=== PATIENT | male | born 1940 | race Caucasian/White ===

== ENCOUNTER 2019-08-10 16:02 | Inpatient (IN) ==
[2019-08-10 20:47] LABS: Basophils % 0.3 %; Hemoglobin 10.9 g/dL (12.9-16.9); INR 1.4; Immature Granulocytes % 0.3 % (0-4); Lymphocytes # 0.1 K/mcL (0.6-4.6); Lymphocytes % 4.2 %; Mean Corpuscular HGB Conc 35.2 g/dL (31.6-35.5); Mean Corpuscular Hemoglobin 32.3 pg (28.0-33.3); Monocytes # 0.2 K/mcL (0.0-1.3); Monocytes % 5.1 %; Platelet Count 114 K/mcL (140-400); Prothrombin Time 15.5 Seconds (9.4-12.1); Red Blood Count 3.37 M/mcL (4.19-5.50); Red Cell Distribution Width 15.7 % (11.5-14.5); Segmented Neutrophils % 90.1 %; White Blood Count 3.4 K/mcL (4.3-11.1)
[2019-08-10 20:54] LABS: Neutrophils # 3.1 K/mcL (1.6-8.9)
[2019-08-10 21:02] LABS: Albumin 2.7 g/dL (3.5-5.7); Albumin/Globulin Ratio 1.4 (1.1-2.2); Calcium 6.5 mg/dL (8.6-10.3); Globulin 1.9 g/dL (2.4-3.5); Magnesium 1.2 mg/dL (1.6-2.6); Phosphorous 3.8 mg/dL (2.7-4.5); Potassium 4.4 mEq/L (3.5-5.1); Total Protein 4.6 g/dL (6.4-8.9)
[2019-08-10 21:13] LABS: Toxic Granulation Present (Not Present)
[2019-08-10 21:14] LABS: Reactive Lymphocytes Present (Not Present)
[2019-08-10] MEDS ORDERED: Naloxone 0.4 MG/ML INJ IVP PRN (21:28)
[2019-08-10] MEDS ORDERED: levoFLOXacin 750 MG/150 ML 750 MG/150 ML BAG IVPB ONE (21:37)
[2019-08-10] MEDS ORDERED: Melatonin 3 MG TABLET PO PRN (22:38)
[2019-08-10] MEDS: Calcium Gluconate 1gm/50mL 1 GM/50 ML BAG IVPB SCH (22:48)
[2019-08-10] MEDS: Norepinephrine 4 MG in 0.9 % Sodium Chloride 250 ML IVC SCH (22:48)
[2019-08-10 23:42] LABS: Adenovirus Not Detected (Not Detect); Bordetella Pertussis Not Detected (Not Detect); Chlamydophila pneumoniae Not Detected (Not Detect); Coronavirus 229E Not Detected (Not Detect); Coronavirus HKU1 Not Detected (Not Detect); Coronavirus NL63 Not Detected (Not Detect); Coronavirus OC43 Not Detected (Not Detect); Human Metapneumovirus Not Detected (Not Detect); Human Rhinovirus/Enterovirus Not Detected (Not Detect); Influenza A Subtype 2009 H1 Not Detected (Not Detect); Influenza A Untypeable Not Detected (Not Detect); Influenza B Not Detected (Not Detect); Mycoplasma pneumoniae Not Detected (Not Detect); Parainfluenza Virus 1 Not Detected (Not Detect); Parainfluenza Virus 2 Not Detected (Not Detect); Parainfluenza Virus 3 Not Detected (Not Detect); Parainfluenza Virus 4 Not Detected (Not Detect); Respiratory Syncytial Virus Not Detected (Not Detect)
[2019-08-10 23:44] LABS: Bilirubin,Urine Small (Negative); Blood,Urine Large (Negative); Clarity,Urine Cloudy (Clear); Color,Urine Dark Yellow (Yellow); Glucose,Urine (UA) Normal (Normal); Ketones,Urine Negative (Negative); Leukocyte Esterase,Urine Trace (Negative); Nitrite,Urine Negative (Negative); Protein,Urine 100 mg/dL (Neg-Trace); Specific Gravity,Urine 1.023 (1.010-1.025); Urobilinogen,Urine Normal (Normal)
[2019-08-11] MEDS: Calcium Gluconate 1gm/50mL 1 GM/50 ML BAG IVPB SCH ×3 (00:02→07:20)
[2019-08-11 00:04] LABS: Hyaline Casts,Urine Few per lpf (None-Few); RBC,Urine 50-100 per hpf (0-3)
[2019-08-11 00:17] LABS: Bacteria,Urine Few per hpf (None-Few)
[2019-08-11 00:18] LABS: Amorphous Sediment,Urine Few (Few); Squamous Epithelial Cell,Urine Moderate per lpf (None-Few)
[2019-08-11] MEDS: Piperacillin/Tazobactam 3.375 GM in 0.9 % Sodium Chloride Mini Bag 100 ML IVPB SCH ×4 (01:16→23:42)
[2019-08-11] MEDS: Norepinephrine 4 MG in 0.9 % Sodium Chloride 250 ML IVC SCH (03:45)
[2019-08-11 04:03] LABS: Basophils % 0.4 %; Immature Granulocytes % 0.5 % (0-4); Monocytes % 3.1 %
[2019-08-11 04:05] LABS: Hematocrit 29.2 % (37.5-50.1); Hemoglobin 10.2 g/dL (12.9-16.9); Immature Platelets 0.6 % (1.1-6.1); Lymphocytes # 0.1 K/mcL (0.6-4.6); Lymphocytes % 2.4 %; Mean Corpuscular HGB Conc 34.9 g/dL (31.6-35.5); Mean Corpuscular Hemoglobin 31.8 pg (28.0-33.3); Mean Platelet Volume 8.5 fL (9.4-12.4); Monocytes # 0.2 K/mcL (0.0-1.3); Neutrophils # 5.2 K/mcL (1.6-8.9); Platelet Count 107 K/mcL (140-400); Red Blood Count 3.21 M/mcL (4.19-5.50); Red Cell Distribution Width 15.7 % (11.5-14.5); Segmented Neutrophils % 93.6 %; White Blood Count 5.5 K/mcL (4.3-11.1)
[2019-08-11 04:10] LABS: INR 1.5; Prothrombin Time 17.3 Seconds (9.4-12.1)
[2019-08-11 04:28] LABS: Albumin 2.5 g/dL (3.5-5.7); Albumin/Globulin Ratio 1.4 (1.1-2.2); Bilirubin,Direct 1.1 mg/dL (0.0-0.2); Bilirubin,Total 2.1 mg/dL (0.3-1.0); Calcium 6.7 mg/dL (8.6-10.3); Globulin 1.8 g/dL (2.4-3.5); Potassium 4.3 mEq/L (3.5-5.1); Total Protein 4.3 g/dL (6.4-8.9)
[2019-08-11 04:52] LABS: Anisocytosis 1+ (Not Present); Platelet Estimate Decreased (Normal)
[2019-08-11] MEDS: *HR* Heparin 5,000 UNIT/ML VIAL SQ SCH ×2 (05:31→19:49)
[2019-08-11] MEDS: Aspirin Enteric Coated 81 MG Tablet PO SCH (09:09)
[2019-08-11] MEDS: rOPINIRole 0.25 MG TABLET PO SCH ×3 (09:09→19:49)
[2019-08-11] MEDS ORDERED: *HR* Metoprolol 5 MG/5 ML VIAL IVP PRN (13:25)
[2019-08-11] MEDS ORDERED: *HR* Metoprolol 5 MG/5 ML VIAL IVP ONE ×3 (13:25→14:00)
[2019-08-11] MEDS ORDERED: Phenylephrine 10 MG in 0.9 % Sodium Chloride 250 ML IVC SCH (14:30)
[2019-08-11] MEDS ORDERED: Amiodarone Premix 360 MG/200 ML BAG IVC ONE (15:25)
[2019-08-11] MEDS ORDERED: Amiodarone Premix 150 MG/100 ML BAG IVPB ONE (15:25)
[2019-08-11] MEDS ORDERED: *HR* Heparin 5,000 UNIT/ML VIAL IVP ONE (15:26)
[2019-08-11] MEDS ORDERED: *HR* Heparin 5,000 UNIT/ML VIAL IVP PRN ×2 (15:26)
[2019-08-11] MEDS ORDERED: Heparin 25,000 UNIT/250 ML D5W 25,000 UNIT/250 ML IV.SOLN IVC SCH (15:30)
[2019-08-11] MEDS ORDERED: Amiodarone Premix 360 MG/200 ML BAG IVC SCH (15:30)
[2019-08-11 16:53] LABS: Red Cell Distribution Width 15.6 % (11.5-14.5)
[2019-08-11 16:54] LABS: INR 1.4; Prothrombin Time 16.3 Seconds (9.4-12.1)
[2019-08-11 16:55] LABS: Hematocrit 30.9 % (37.5-50.1); Immature Platelets 2.1 % (1.1-6.1); Mean Corpuscular HGB Conc 35.6 g/dL (31.6-35.5); Mean Corpuscular Hemoglobin 32.2 pg (28.0-33.3); Mean Corpuscular Volume 90.4 fL (83.0-100.0); Mean Platelet Volume 8.9 fL (9.4-12.4); Red Blood Count 3.42 M/mcL (4.19-5.50); White Blood Count 8.4 K/mcL (4.3-11.1)
[2019-08-11] MEDS ORDERED: *HR* Digoxin 0.5 MG/2 ML AMPUL IVP ONE (17:07)
[2019-08-11] MEDS: Phenylephrine 50 MG in 0.9 % Sodium Chloride 250 ML IVC SCH (17:33)
[2019-08-11] MEDS ORDERED: Perflutren Lipid Microsphere 1.3 ML in 0.9 % Sodium Chloride 8.7 ML IVP ONE (19:06)
[2019-08-11] MEDS: carvediloL 6.25 MG TABLET PO SCH (19:49)
[2019-08-12 03:49] LABS: Basophils % 0.3 %; Lymphocytes % 2.3 %
[2019-08-12 03:51] LABS: Eosinophils % 0.1 %; Hematocrit 25.8 % (37.5-50.1); Immature Granulocytes % 16.5 % (0-4); Immature Platelets 1.3 % (1.1-6.1); Lymphocytes # 0.2 K/mcL (0.6-4.6); Mean Corpuscular HGB Conc 34.9 g/dL (31.6-35.5); Mean Corpuscular Hemoglobin 31.8 pg (28.0-33.3); Mean Corpuscular Volume 91.2 fL (83.0-100.0); Mean Platelet Volume 8.9 fL (9.4-12.4); Monocytes # 0.2 K/mcL (0.0-1.3); Monocytes % 2.6 %; Neutrophils # 5.5 K/mcL (1.6-8.9); Red Blood Count 2.83 M/mcL (4.19-5.50); Red Cell Distribution Width 15.6 % (11.5-14.5); Segmented Neutrophils % 78.2 %
[2019-08-12 03:56] LABS: Albumin 2.2 g/dL (3.5-5.7); Albumin/Globulin Ratio 1.2 (1.1-2.2); Bilirubin,Total 1.5 mg/dL (0.3-1.0); Calcium 7.1 mg/dL (8.6-10.3); Globulin 1.9 g/dL (2.4-3.5); Potassium 3.8 mEq/L (3.5-5.1); Total Protein 4.1 g/dL (6.4-8.9)
[2019-08-12 04:06] LABS: Platelet Count 77 K/mcL (140-400)
[2019-08-12 05:02] LABS: Basophils % 0.3 %; Red Cell Distribution Width 15.5 % (11.5-14.5)
[2019-08-12 05:04] LABS: Hematocrit 25.6 % (37.5-50.1); Hemoglobin 8.9 g/dL (12.9-16.9); Immature Granulocytes % 10.7 % (0-4); Immature Platelets 1.5 % (1.1-6.1); Lymphocytes # 0.2 K/mcL (0.6-4.6); Lymphocytes % 2.5 %; Mean Corpuscular HGB Conc 34.8 g/dL (31.6-35.5); Mean Corpuscular Hemoglobin 31.6 pg (28.0-33.3); Mean Corpuscular Volume 90.8 fL (83.0-100.0); Mean Platelet Volume 8.6 fL (9.4-12.4); Monocytes # 0.2 K/mcL (0.0-1.3); Monocytes % 2.7 %; Neutrophils # 5.6 K/mcL (1.6-8.9); Red Blood Count 2.82 M/mcL (4.19-5.50); Segmented Neutrophils % 83.8 %; White Blood Count 6.7 K/mcL (4.3-11.1)
[2019-08-12] MEDS: Phenylephrine 50 MG in 0.9 % Sodium Chloride 250 ML IVC SCH ×2 (05:05→19:00)
[2019-08-12] MEDS: *HR* Heparin 5,000 UNIT/ML VIAL SQ SCH ×3 (05:06→20:51)
[2019-08-12] MEDS: Calcium Gluconate 1gm/50mL 1 GM/50 ML BAG IVPB SCH ×2 (05:06→06:25)
[2019-08-12 05:11] LABS: Platelet Count 74 K/mcL (140-400)
[2019-08-12] MEDS ORDERED: Aminoglycoside Consult 1 EACH MC ONE (07:30)
[2019-08-12] MEDS: Piperacillin/Tazobactam 3.375 GM in 0.9 % Sodium Chloride Mini Bag 100 ML IVPB SCH (08:17)
[2019-08-12] MEDS: rOPINIRole 0.25 MG TABLET PO SCH ×3 (08:17→20:51)
[2019-08-12] MEDS: carvediloL 6.25 MG TABLET PO SCH ×2 (08:17→20:51)
[2019-08-12] MEDS: Aspirin Enteric Coated 81 MG Tablet PO SCH (08:17)
[2019-08-12] MEDS ORDERED: *HR* Digoxin 0.125 MG TABLET PO SCH (09:00)
[2019-08-12] MEDS: Cefepime HCl 2,000 MG in Water for inj. (sterile) 20 ML IVP SCH (18:06)
[2019-08-13 04:36] LABS: Mean Corpuscular Hemoglobin 32.1 pg (28.0-33.3); Red Cell Distribution Width 15.5 % (11.5-14.5)
[2019-08-13 04:38] LABS: Hematocrit 25.6 % (37.5-50.1); Hemoglobin 8.7 g/dL (12.9-16.9); Immature Granulocytes % 1.7 % (0-4); Immature Platelets 1.6 % (1.1-6.1); Lymphocytes # 0.2 K/mcL (0.6-4.6); Lymphocytes % 4.6 %; Mean Corpuscular Volume 94.5 fL (83.0-100.0); Mean Platelet Volume 9.8 fL (9.4-12.4); Monocytes # 0.2 K/mcL (0.0-1.3); Neutrophils # 4.1 K/mcL (1.6-8.9); Red Blood Count 2.71 M/mcL (4.19-5.50); Segmented Neutrophils % 88.7 %; White Blood Count 4.6 K/mcL (4.3-11.1)
[2019-08-13 04:42] LABS: Platelet Count 60 K/mcL (140-400)
[2019-08-13 04:59] LABS: BUN/Creatinine Ratio 30 (6-26); Blood Urea Nitrogen 39 mg/dL (8-23); Calcium 7.2 mg/dL (8.6-10.3); Carbon Dioxide 23 mEq/L (23-29); Chloride 108 mEq/L (98-107); Glucose 92 mg/dL (70-105); Osmolality,Calculated 291 (280-300); Potassium 3.8 mEq/L (3.5-5.1); Sodium 136 mEq/L (136-145); eGFR For African Americans > 60 (> 60); eGFR For Non-African Americans 54 (> 60)
[2019-08-13 05:28] LABS: Toxic Granulation Present (Not Present)
[2019-08-13 05:29] LABS: Platelet Estimate Decreased (Normal); Poikilocytosis 1+ (Not Present)
[2019-08-13] MEDS: Norepinephrine 4 MG in 0.9 % Sodium Chloride 250 ML IVC SCH (05:42)
[2019-08-13] MEDS: Cefepime HCl 2,000 MG in Water for inj. (sterile) 20 ML IVP SCH (05:43)
[2019-08-13] MEDS: *HR* Heparin 5,000 UNIT/ML VIAL SQ SCH ×3 (05:44→21:18)
[2019-08-13] MEDS ORDERED: cefTRIAXone 2,000 MG in Water for inj. (sterile) 20 ML IVP SCH (08:00)
[2019-08-13] MEDS: Aspirin Enteric Coated 81 MG Tablet PO SCH (08:50)
[2019-08-13] MEDS: rOPINIRole 0.25 MG TABLET PO SCH ×3 (08:50→20:08)
[2019-08-13] MEDS: carvediloL 6.25 MG TABLET PO SCH ×2 (08:50→17:29)
[2019-08-13] MEDS ORDERED: Naloxone 0.4 MG/ML INJ IVP PRN (12:45)
[2019-08-13] MEDS ORDERED: Melatonin 3 MG TABLET PO PRN (12:45)
[2019-08-13] MEDS ORDERED: *HR* Metoprolol 5 MG/5 ML VIAL IVP PRN (12:45)
[2019-08-14] MEDS: *HR* Heparin 5,000 UNIT/ML VIAL SQ SCH ×2 (05:31→08:05)
[2019-08-14] MEDS ORDERED: Water for inj. (sterile) 20 ML IV ONE (08:32)
[2019-08-14 08:37] LABS: Hemoglobin 9.7 g/dL (12.9-16.9); Mean Corpuscular Volume 91.2 fL (83.0-100.0)
[2019-08-14 08:39] LABS: Hematocrit 27.9 % (37.5-50.1); Immature Granulocytes % 1.1 % (0-4); Immature Platelets 1.7 % (1.1-6.1); Lymphocytes # 0.3 K/mcL (0.6-4.6); Lymphocytes % 6.9 %; Mean Corpuscular HGB Conc 34.8 g/dL (31.6-35.5); Mean Corpuscular Hemoglobin 31.7 pg (28.0-33.3); Mean Platelet Volume 9.3 fL (9.4-12.4); Monocytes # 0.3 K/mcL (0.0-1.3); Red Blood Count 3.06 M/mcL (4.19-5.50); Red Cell Distribution Width 15.5 % (11.5-14.5); White Blood Count 3.8 K/mcL (4.3-11.1)
[2019-08-14 08:40] LABS: Neutrophils # 3.2 K/mcL (1.6-8.9); Platelet Count 66 K/mcL (140-400)
[2019-08-14] MEDS: cefTRIAXone 2,000 MG in Water for inj. (sterile) 20 ML IVP SCH (08:42)
[2019-08-14] MEDS: rOPINIRole 0.25 MG TABLET PO SCH ×3 (08:42→22:04)
[2019-08-14] MEDS: carvediloL 6.25 MG TABLET PO SCH ×2 (08:42→16:59)
[2019-08-14 08:49] LABS: INR 1.1; Prothrombin Time 12.5 Seconds (9.4-12.1)
[2019-08-14 08:56] LABS: BUN/Creatinine Ratio 26 (6-26); Blood Urea Nitrogen 32 mg/dL (8-23); Calcium 7.5 mg/dL (8.6-10.3); Carbon Dioxide 26 mEq/L (23-29); Chloride 106 mEq/L (98-107); Glucose 96 mg/dL (70-105); Osmolality,Calculated 295 (280-300); Potassium 3.8 mEq/L (3.5-5.1); Sodium 139 mEq/L (136-145); eGFR For African Americans > 60 (> 60); eGFR For Non-African Americans 58 (> 60)
[2019-08-14] MEDS: Aspirin Enteric Coated 81 MG Tablet PO SCH (08:57)
[2019-08-14] MEDS ORDERED: *HR* Digoxin 0.125 MG TABLET PO SCH (09:00)
[2019-08-14 09:01] LABS: Platelet Estimate Decreased (Normal); Toxic Granulation Present (Not Present)
[2019-08-15 02:30] LABS: BUN/Creatinine Ratio 27 (6-26); Blood Urea Nitrogen 30 mg/dL (8-23); Calcium 7.5 mg/dL (8.6-10.3); Carbon Dioxide 24 mEq/L (23-29); Chloride 109 mEq/L (98-107); Glucose 116 mg/dL (70-105); Osmolality,Calculated 291 (280-300); Potassium 3.6 mEq/L (3.5-5.1); Sodium 137 mEq/L (136-145); eGFR For African Americans > 60 (> 60); eGFR For Non-African Americans > 60 (> 60)
[2019-08-15] MEDS: carvediloL 6.25 MG TABLET PO SCH ×2 (10:19→15:37)
[2019-08-15] MEDS: rOPINIRole 0.25 MG TABLET PO SCH ×3 (10:19→20:54)
[2019-08-15] MEDS: cefTRIAXone 2,000 MG in Water for inj. (sterile) 20 ML IVP SCH (10:19)
[2019-08-15] MEDS: Aspirin Enteric Coated 81 MG Tablet PO SCH (10:19)
[2019-08-15] MEDS: *HR* Digoxin 0.125 MG TABLET PO SCH (15:38)
[2019-08-15] MEDS: Cefdinir 300 MG CAPSULE PO SCH (20:53)
[2019-08-16] MEDS ORDERED: Metoprolol XL (24 HR) Succ 50 MG TAB.ER.24H PO SCH (09:00)
[2019-08-16] MEDS: *HR* Digoxin 0.125 MG TABLET PO SCH (10:16)
[2019-08-16] MEDS: rOPINIRole 0.25 MG TABLET PO SCH ×2 (10:16→17:23)
[2019-08-16] MEDS: Cefdinir 300 MG CAPSULE PO SCH (10:16)
[2019-08-16] MEDS: Aspirin Enteric Coated 81 MG Tablet PO SCH (10:16)
[2019-08-16 16:26] VITALS: BP 128/78
== END 2019-08-16 18:04 | disposition home health service (06) | DRG 871 ==
LOC: ICNU 19:01 → SUATTDRO 19:01 → 2NENU 08-13 22:04
PROVIDERS: ADMIT Pediatrics; ATTEND Internal Medicine